=== PATIENT | male | born 1995 | race Caucasian/White ===

== ENCOUNTER 2023-10-20 23:27 | Observation (INO) | payer OTHER ==
[2023-10-21] MEDS ORDERED: LORazepam 0.5 MG TAB PO PRN ×2 (00:24→08:07)
[2023-10-21] MEDS ORDERED: LORazepam 1 MG TAB PO PRN ×3 (00:24)
--- NOTE | 2023-10-21 00:29 | ED ---
Chest Pain HPI - General Chief Complaint: Chest Pain Stated Complaint: seizure left ankle pain Time Seen by Provider: 10/21/23 00:27 Source: patient, RN notes reviewed Mode of arrival: wheelchair Limitations: no limitations - History of Present Illness Initial Comments: 28-year-old male presenting to the ER with a chief complaint of alcohol withdrawal. Patient states he is currently residing at [facility] for alcohol rehab. His last drink was last Saturday10/15/23. States he would normally drink 4 bottles of wine per night. He does report a history of seizures with alcohol withdrawal. He states at [facility] he has not been properly prescribed medications and feels like he is about to have a seizure. He states he has been extremely shaky all day. He does report he was playing volleyball and accidentally rolled his left ankle. He did states he did feel a pop and is endorsing pain over the fifth metatarsal. Denies any paresthesias or other injuries. He is also reporting chest pain and shortness of breath. Endorses nausea, vomiting as well. Denies any fevers, cough, congestion or peripheral edema. - Related Data Allergies Allergy/AdvReac Type Severity Reaction Status Date / Time propofol AdvReac Unknown Verified 10/20/23 23:53 Review of Systems ROS Statement: Those systems with pertinent positive or pertinent negative responses have been documented in the HPI. ROS Other: All systems not noted in ROS Statement are negative. EKG Findings - EKG Comments: EKG Findings:: EKG taken at 23: 59 showing sinus tachycardia with no acute ST segment or T wave abnormalities. Ventricular rate 114, MS interval 131, QRS duration 89, QT/QTc 286/354. Past Medical History Additional Past Medical History / Comment(s): seizure History of Any Multi-Drug Resistant Organisms: None Reported Additional Past Surgical History / Comment(s): ankle surgery Smoking Status: Current every day smoker, Vaper Past Alcohol Use History: Heavy Past Drug Use History: Marijuana General Exam Limitations: no limitations General appearance: alert, in no apparent distress, anxious Head exam: Present: atraumatic, normocephalic, normal inspection Respiratory exam: Present: normal lung sounds bilaterally. Absent: respiratory distress, wheezes, rales, rhonchi, stridor Cardiovascular Exam: Present: normal rhythm, tachycardia, normal heart sounds GI/Abdominal exam: Present: soft, normal bowel sounds. Absent: distended, tenderness, guarding, rebound, rigid Extremities exam: Present: normal inspection, full ROM, tenderness (Fifth metatarsal 2+ left dorsalis pedis pulse. Sensation intact. Patient has full active range of motion.), normal capillary refill. Absent: pedal edema, joint swelling, calf tenderness Neurological exam: Present: alert, oriented X3, CN II-XII intact Skin exam: Present: warm, dry, intact, normal color. Absent: rash Course Vital Signs 10/20/23 10/21/23 23:49 02:44 Temperature 99.6 F Pulse Rate 125 H 103 H Respiratory 20 18 Rate Blood Pressure 139/67 118/74 O2 Sat by Pulse 99 96 Oximetry - Reevaluation(s) Reevaluation #1: 10/21/23 03:[address] Wan, who accepts medical admission. Procedures - Orthopedic Splinting/Casting Injury #1 Side: left Lower Extremity Injury Location: foot Lower Extremity Immobilizer: posterior splint Chest Pain MDM - MDM Was pt. sent in by a medical professional or institution (, PA, BEATER LEAD, urgent care, hospital, or usp...) When possible be specific @ -No Did you speak to anyone other than the patient for history (EMS, parent, family, police, friend...)? What history was obtained from this source @ -No Did you review nursing and triage notes (agree or disagree)? Why? @ -I reviewed and agree with nursing and triage notes Were old charts reviewed (outside hosp., previous admission, EMS record, old EKG, old radiological studies, urgent care reports/EKG's, usp records)? Report findings @ -No old charts were reviewed Differential Diagnosis (chest pain, altered mental status, abdominal pain women, abdominal pain men, vaginal bleeding, weakness, fever, dyspnea, syncope, headache, dizziness, GI bleed, back pain, seizure, CVA, palpatations, mental health, musculoskeletal)? @ -Alcohol intoxication, alcohol withdrawal, fracture, dislocation, contusion t his list is not meant to be all-inclusive EKG interpreted by me (3pts min.). @ -As above X-rays interpreted by me (1pt min.). @ -Left foot x-ray interpreted by me significant for 1/5 metatarsal fracture. Chest x-ray and left ankle as interpreted by me negative for acute process. CT interpreted by me (1pt min.). @ -None done U/S interpreted by me (1pt. min.). @ -None done What testing was considered but not performed or refused? (CT, X-rays, U/S, labs)? Why? @ -None What meds were considered but not given or refused? Why? @ -None Did you discuss the management of the patient with other professionals (professionals i.e. DrAlysia, PA, BEATER LEAD, lab, RT, psych nurse, delinquency prevention social worker, pot tender, teacher, psychological operations officer, case fitter)? Give summary @ -Yes, case discussed with Dr. Wan who accepts medical admission. Was smoking cessation discussed for >3mins.? @ -No Was critical care preformed (if so, how long)? @ -No Were there social determinants of health that impacted care today? How? (Homelessness, low income, unemployed, alcoholism, drug addiction, transportation, low edu. Level, literacy, decrease access to med. care, half-way, rehab)? @ -Beth is not currently in rehab at [facility] Was there de-escalation of care discussed even if they declined (Discuss DNR or withdrawal of care, Hospice)? DNR status @ -No What co-morbidities impacted this encounter? (DM, HTN, Smoking, COPD, CAD, Cancer, CVA, ARF, Chemo, Hep., AIDS, mental health diagnosis, sleep apnea, morbid obesity)? @ -Alcoholism Was patient admitted / discharged? Hospital course, mention meds given and route, prescriptions, significant lab abnormalities, going to OR and other pertinent info. @ -Admitted. 28-year-old male presented to the ER with a chief complaint of alcohol withdrawal and left foot injury. History and physical exam completed. Vitals significant for tachycardia at 125 upon arrival. Vitals otherwise stable. Patient no signs of acute distress and nontoxic-appearing. Patient with tremor and restless on exam. Left lower extremity neurovascularly intact with tenderness over fifth metatarsal base. Labs obtained unimpressive. X-rays of the left foot significant for 5th metatarsal fracture. Splint placed. Admission considered due to CIWA at 21. Ativan given. Case discussed with Dr. Wan who accepts medical admission. Patient agreeable for admission. Case discussed with ED attending, Dr. Serrano. Undiagnosed new problem with uncertain prognosis? @ -No Drug Therapy requiring intensive monitoring for toxicity (Heparin, Nitro, Insulin, Cardizem)? @ -No Were any procedures done? @ -Yes Diagnosis/symptom? @ -Alcohol withdrawal/fifth metatarsal fracture Acute, or Chronic, or Acute on Chronic? @ -Acute Uncomplicated (without systemic symptoms) or Complicated (systemic symptoms)? @ -Complicated Side effects of treatment? @ -No Exacerbation, Progression, or Severe Exacerbation? @ -No Poses a threat to life or bodily function? How? (Chest pain, USA, MS, pneumonia, PE, COPD, DKA, ARF, appy, cholecystitis, CVA, Diverticulitis, Homicidal, Suicidal, threat to staff... and all critical care pts) @ -Possibly Disposition Clinical Impression: Alcohol withdrawal, Fracture of fifth metatarsal bone Disposition: ADMITTED IP TO THIS HOSP Condition: Good Time of Disposition: 02:27
[2023-10-21 00:38] LABS: Basophils # (A) 0.1 k/uL (0-0.2); Basophils % (A) 1 %; Eosinophils % (A) 0 %; HCT 45.6 % (39.0-53.0); HGB 14.3 gm/dL (13.0-17.5); Lymphocytes # (A) 0.9 k/uL (1.0-4.8); Lymphocytes % (A) 14 %; MCH 29.7 pg (25.0-35.0); MCHC 31.3 g/dL (31.0-37.0); MCV 94.9 fL (80.0-100.0); Mean Platelet Volume 7.1; Monocytes # (A) 0.5 k/uL (0-1.0); Monocytes % (A) 7 %; Neutrophils # (A) 5.1 k/uL (1.3-7.7); Neutrophils % (A) 77 %; Platelet Count 278 k/uL (150-450); RBC 4.81 m/uL (4.30-5.90); RDW 12.9 % (11.5-15.5); WBC 6.6 k/uL (3.8-10.6)
[2023-10-21 01:09] LABS: ALT 40 U/L (4-49); AST 46 U/L (17-59); African American GFR (CKD) 89 (>60 ml/min/1.73 sqM); Albumin 4.6 g/dL (3.5-5.0); Alcohol <10 mg/dL; Alkaline Phosphatase 78 U/L (38-126); Anion Gap 11 mmol/L; Blood Urea Nitrogen 12 mg/dL (9-20); Calcium 9.9 mg/dL (8.4-10.2); Carbon Dioxide 25 mmol/L (22-30); Chloride 105 mmol/L (98-107); Glucose 81 mg/dL (74-99); Magnesium 1.6 mg/dL (1.6-2.3); Non-African American GFR(CKD) 77 (>60 ml/min/1.73 sqM); Potassium 4.2 mmol/L (3.5-5.1); Sodium 141 mmol/L (137-145); Total Bilirubin 0.5 mg/dL (0.2-1.3); Total Protein 7.1 g/dL (6.3-8.2)
[2023-10-21] MEDS: THIAMINE 100 MG/ML 2 ML VIAL IM STA (01:16)
[2023-10-21] MEDS ORDERED: LORazepam 2 MG/ML INJ IV PRN ×3 (01:29→08:07)
[2023-10-21] MEDS: SODIUM CHLORIDE 0.9% 1,000 ML IV STA (01:41)
[2023-10-21] MEDS: LORazepam 2 MG/ML INJ IV PRN ×2 (01:41→06:20)
[2023-10-21 01:47] LABS: Partial Thromboplastin Time 25.3 sec (22.0-30.0); Prothrombin Time 10.9 sec (10.0-12.5)
[2023-10-21] MEDS: IBUPROFEN 600 MG TAB PO STA (02:29)
--- NOTE | 2023-10-21 02:30 | XR ---
EXAM: XR Left Ankle Complete, 3 or More Views CLINICAL HISTORY: Pain. TECHNIQUE: Frontal, lateral and oblique views of the left ankle. COMPARISON: No relevant prior studies available. FINDINGS: Bones/joints: Unremarkable. No acute fracture. No dislocation. Soft tissues: Unremarkable. IMPRESSION: Normal left ankle x-rays.
--- NOTE | 2023-10-21 02:33 | XR ---
EXAM: XR Left Foot Complete, 3 or More Views CLINICAL HISTORY: Pain. TECHNIQUE: Frontal, lateral and oblique views of the left foot. COMPARISON: No relevant prior studies available. FINDINGS: Bones/joints: Non-distracted acute transverse fracture through the base of the fifth metatarsal. No other fracture. No dislocation. Soft tissues: Unremarkable. No radiopaque foreign body. IMPRESSION: Non-distracted acute transverse fracture through the base of the fifth metatarsal.
--- NOTE | 2023-10-21 02:34 | XR ---
EXAM: XR Chest, 2 Views CLINICAL HISTORY: Chest Pain TECHNIQUE: Frontal and lateral views of the chest. COMPARISON: No relevant prior studies available. FINDINGS: Lungs: Unremarkable. No infiltration, atelectasis or mass density. Pleural space: Unremarkable. No pneumothorax. No pleural fluid. Heart: Unremarkable. No cardiomegaly. Mediastinum: Unremarkable. Normal mediastinal contour. Bones/joints: Unremarkable. No acute abnormalities. IMPRESSION: Negative chest x-rays.
[2023-10-21] MEDS: ACETAMINOPHEN TAB 325 MG TAB PO STA (02:41)
[2023-10-21] MEDS ORDERED: NALOXONE 0.4 MG/ML 1 ML VIAL IV PRN (02:48)
--- NOTE | 2023-10-21 04:04 | P.HPIM ---
History of Present Illness H&P Date: 10/21/23 Patient is a 28-year-old male with a PMH of alcohol abuse who presents to the emergency room from [facility] for alcohol drawl. Patient reports that he has been at [facility] for the past 5 days and that his last drink was this past Saturday. Reports drinking 3 bottles of wine daily for the past several months and does report a history of alcohol withdrawal. Denies history of alcohol withdrawal seizures. Reported feeling shaky and uneasy as well as diaphoretic. Also reports left-sided sharp chest discomfort, pleuritic component, without associated nausea, vomiting, or dizziness. Denies fever, chills, cough, abdominal pain, diarrhea. Patient did report twisting his left ankle while playing volleyball earlier in the day today. EKG in the emergency room revealed sinus tachycardia at [address]/T wave changes noted as reviewed by me. Chest x-ray revealed no acute abnormal ities. Left foot x-ray revealed an acute transverse fracture of the fifth metatarsal. Laboratory evaluation was remarkable for creatinine of 1.27 with troponin less than 0.012. ED documentation reviewed and case discussed with ED provider. Review of systems: Pertinent positives and negatives as discussed in HPI, a complete review of systems was performed and all other systems are negative. Physical examination: Vital signs reviewed General: non toxic, no distress, appears at stated age, normal weight Derm: no unusual rashes/lesions, warm Head: atraumatic, normocephalic, symmetric Eyes: EOMI, no lid lag, anicteric sclera, pupils equal round reactive to light ENT: Nose and ears atraumatic Neck: No cervical lymphadenopathy, trachea midline, supple Mouth: no lip lesion, mucus membranes moist, tongue fasciculations noted Cardiovascular: S1S2 reg, no murmur, positive dorsalis pedis pulse bilateral, no edema Lungs: CTA bilateral, no rhonchi, no rales, no accessory muscle use Abdominal: soft, nontender to palpation, no guarding Ext: muscle strength 5 out of 5 in all 4 extremities grossly, no gross muscle atrophy, no contractures, Neuro: CN II-XI grossly intact, no gross focal neuro deficits, outstretched hand tremor Psych: Alert, oriented, appropriate affect Assessment: Alcohol withdrawal Pleuritic chest pain, suspect musculoskeletal Kidney injury, acute versus chronic Left fifth metatarsal fracture Imaging: EKG in the emergency room revealed sinus tachycardia at [address]/T wave changes noted as reviewed by me. Chest x-ray revealed no acute abnormalities. Left foot x-ray revealed an acute transverse fracture of the fifth metatarsal. Data Review: Laboratory evaluation was remarkable for creatinine of 1.27 with troponin less than 0.012. Plan: Advised on the importance of cessation Continue with thiamine Continue IV fluid with normal saline 100 cc/h CIWA protocol with Ativan as needed Cardiac monitoring Monitor electrolytes daily Fall precautions Monitor BMP Check D-dimer Left foot splinted in the emergency room, patient will need outpatient orth opedics follow-up DVT prophylaxis: Lovenox subcu The patient is admitted with an anticipated less than 2 midnight stay for evaluation of alcohol withdrawal CODE STATUS: Full Code Discussed with: Patient Anticipated discharge place: [facility] Past Medical History Additional Past Medical History / Comment(s): seizure History of Any Multi-Drug Resistant Organisms: None Reported Additional Past Surgical History / Comment(s): ankle surgery Smoking Status: Current every day smoker, Vaper Past Alcohol Use History: Heavy Past Drug Use History: Marijuana Medications and Allergies Allergies Allergy/AdvReac Type Severity Reaction Status Date / Time propofol AdvReac Unknown Verified 10/20/23 23:53 Physical Exam Vitals: Vital Signs Temp Pulse Resp BP Pulse Ox 10/21/23 02:44 103 H 18 118/74 96 10/20/23 23:49 99.6 F 125 H 20 139/67 99 Intake and Output 10/20/23 10/20/23 10/21/23 14:59 22:59 06:59 Other: Weight 81.193 kg Results CBC & Chem 7: 10/21/23 00:11 10/21/23 00:11 Labs: Abnormal Lab Results - Last 24 Hours (Table) 10/21/23 10/21/23 Range/Units 00:11 00:11 Lymphocytes # 0.9 L (1.0-4.8) k/uL Creatinine 1.27 H (0.66-1.25) mg/dL
[2023-10-21 04:43] LABS: HCT 41.7 % (39.0-53.0); HGB 13.6 gm/dL (13.0-17.5); MCHC 32.6 g/dL (31.0-37.0); Mean Platelet Volume 8.1; Platelet Count 247 k/uL (150-450); RBC 4.39 m/uL (4.30-5.90)
[2023-10-21] MEDS: SODIUM CHLORIDE 0.9% 1,000 ML IV SCH (04:51)
[2023-10-21 04:57] LABS: African American GFR (CKD) >90 (>60 ml/min/1.73 sqM); Anion Gap 9 mmol/L; Blood Urea Nitrogen 12 mg/dL (9-20); Calcium 8.6 mg/dL (8.4-10.2); Carbon Dioxide 22 mmol/L (22-30); Chloride 107 mmol/L (98-107); Glucose 103 mg/dL (74-99); Non-African American GFR(CKD) 83 (>60 ml/min/1.73 sqM); Potassium 3.6 mmol/L (3.5-5.1); Sodium 138 mmol/L (137-145)
[2023-10-21] MEDS: chlordiazePOXIDE 25 MG CAP PO SCH (08:27)
[2023-10-21] MEDS: FOLIC ACID 1 MG TAB PO SCH (08:27)
[2023-10-21] MEDS: LORazepam 1 MG TAB PO PRN ×3 (08:27→20:38)
[2023-10-21] MEDS: ENOXAPARIN 40 MG/0.4 ML SYRINGE SQ SCH (08:29)
[2023-10-21 12:20] VITALS: TEMP 97.6
[2023-10-21] MEDS: cloNIDine HCL 0.1 MG TAB PO PRN (13:58)
[2023-10-21] MEDS ORDERED: ALBUTEROL NEBULIZED 2.5 MG/3 ML INHALATION PRN (15:45)
[2023-10-21] MEDS ORDERED: CALCIUM CARBONATE 500 MG CHEWABLE PO PRN (15:45)
[2023-10-21] MEDS ORDERED: MELATONIN 5 MG TABLET PO PRN (15:45)
[2023-10-21] MEDS ORDERED: ONDANSETRON 4 MG/2 ML VIAL IVP PRN (15:45)
[2023-10-21] MEDS ORDERED: bisacodyL 5 MG TABLET.DR PO PRN (15:45)
[2023-10-21] MEDS: ACETAMINOPHEN TAB 325 MG TAB PO PRN (16:44)
--- NOTE | 2023-10-21 17:43 | P.PN ---
Progress Note - Text Progress Note Date: 10/21/23 Update to H and P completed by Dr. Wan: Patient seen and examined at bedside in the emergency department at approximately 10:20 AM. Patient states he continues to have significant alcohol withdrawal and anxiety. He states the Ativan is not working. He then states that he had twisted his ankle and hurt it several days ago. He then states he was not getting proper care at [facility]. I added Atarax added and then clonidine to help with his anxiety. I am inagreement with the remained of his medications. I told him we would maintain him on Ativan and Librium and consult orthopedic surgery regarding his metatarsal fracture. Patient is very hostile and states it was too took too long to be seen. I explained to him that he saw the emergency department provider as well as my partner already and that it is 1020 in the morning and I have already seen him.
[2023-10-21] MEDS: hydrOXYzine HCL 25 MG TAB PO PRN (21:38)
[2023-10-21] MEDS: traZODone HCL 100 MG TAB PO STA (22:03)
[2023-10-22 03:03] VITALS: BP 128/87; PULSE 106; RESP 20
[2023-10-22] MEDS ORDERED: THIAMINE 100 MG TAB PO SCH (09:00)
--- NOTE | 2023-10-22 18:57 | P.DS ---
Providers Date of admission: 10/21/23 02:48 Expected date of discharge: 10/22/23 Attending physician: Courtney Wan MD Consults: 10/21/23 17:40 Consult Physician Routine Consulting Provider: Steven Barrientos Consult Reason/Comments: metatarsal fracture Do you want consulting provider notified?: Yes Primary care physician: Stated None Hospital Course: This is a summary of care as patient left Against Medical Advice. Discharge Diagnosis: Left Against Medical Advice Left fifth metatarsal transverse fracture Alcohol withdrawal Pleuritic chest pain Anxiety Nicotine dependency Acute kidney injury Hospital Course: Patient is a 28-year-old male with alcohol dependency, prior seizure disorder, and nicotine dependency who presented to the emergency department from [facility] due to foot pain, chest pain, and believing they were not appropriately retreating his alcohol withdrawal. On arrival to the ER he was tachycardic with a pulse of 114. Initial laboratory analysis demonstrated a creatinine of 1.27. Patient underwent extensive radiologic evaluation in the emergency department which showed a normal left ankle but a nondisplaced acute transverse fractures through the base of the fifth metatarsal. Patient was admitted for alcohol withdrawal and pleuritic chest pain as well as fifth metatarsal fracture. He was started on CIWA protocol as well as thiamine and folic acid. He was having significant anxiety and he was ordered both Atarax and trazodone. Orthopedic surgery was consulted. I logged into the computer on 10/22/23 and noted that his nurse let the patient leave AMA at 0518. I did not physically speak with or examine the patient on the day he left AMA. Patient was left against medical advice on 10/22/23. This dictation was prepared using [employer] voice recognition software. Though every attempt is made to correct errors during dictation some may still exist. Patient Condition at Discharge: Good Plan - Discharge Summary New Discharge Prescriptions: No Action RX: Thiamine [Vitamin B-1] 100 mg PO DAILY Mylanta 30 ml PO Q4H PRN PRN Reason: Gi Upset cloNIDine HCL [Catapres] 0.1 - 0.3 mg PO Q4H PRN PRN Reason: bp>160/100 Hyoscyamine Sulfate [Levsin] 0.125 mg PO QID PRN PRN Reason: Gi Upset LORazepam [Ativan] 1 - 2 mg PO Q4-6H traZODone HCL [Desyrel] 50 - 150 mg PO HS PRN PRN Reason: Insomnia ondansetron HCL [Zofran] 8 mg PO Q6H PRN PRN Reason: Nausea And Vomiting Acetaminophen Tab [Tylenol] 650 mg PO Q4H PRN PRN Reason: Pain Multivitamins, Thera [Multivitamin (formulary)] 1 tab PO DAILY RX: Melatonin 10 mg PO HS Ibuprofen [Motrin Ib] 600 mg PO Q6H PRN PRN Reason: Pain Loperamide [Imodium] 4 mg PO QID PRN PRN Reason: Diarrhea Calcium/Magnesium/Zinc/Vitamin D 334/134/5mg 1 tab PO TID PRN PRN Reason: muscle cramps Discharge Medication List Acetaminophen Tab [Tylenol] 650 mg PO Q4H PRN 10/21/23 [History] Calcium/Magnesium/Zinc/Vitamin D 334/134/5mg 1 tab PO TID PRN 10/21/23 [History] Hyoscyamine Sulfate [Levsin] 0.125 mg PO QID PRN 10/21/23 [History] Ibuprofen [Motrin Ib] 600 mg PO Q6H PRN 10/21/23 [History] LORazepam [Ativan] 1 - 2 mg PO Q4-6H 10/21/23 [History] Loperamide [Imodium] 4 mg PO QID PRN 10/21/23 [History] Multivitamins, Thera [Multivitamin (formulary)] 1 tab PO DAILY 10/21/23 [History] Mylanta 30 ml PO Q4H PRN 10/21/23 [History] RX: Melatonin 10 mg PO HS 10/21/23 [History] RX: Thiamine [Vitamin B-1] 100 mg PO DAILY 10/21/23 [History] cloNIDine HCL [Catapres] 0.1 - 0.3 mg PO Q4H PRN 10/21/23 [History] ondansetron HCL [Zofran] 8 mg PO Q6H PRN 10/21/23 [History] traZODone HCL [Desyrel] 50 - 150 mg PO HS PRN 10/21/23 [History] Follow up Appointment(s)/Referral(s): None,Stated [Primary Care Provider] - 1-2 days Discharge Disposition: LEFT AGAINST MEDICAL ADVICE
== END 2023-10-22 05:18 | disposition left against medical advice (07) ==
LOC: EC 23:27 → 3SCARD 10-21 02:48
PROVIDERS: ADMIT Internal Medicine; ATTEND Internal Medicine
DX: F10.239 Alcohol dependence with withdrawal, unspecified (principal); S92.355A Nondisplaced fracture of fifth metatarsal bone, left foot, initial encounter for closed fracture; R07.81 Pleurodynia; N17.9 Acute kidney failure, unspecified; X50.1XXA Overexertion from prolonged static or awkward postures, initial encounter; Y93.68 Activity, volleyball (beach) (court); F41.9 Anxiety disorder, unspecified; F17.290 Nicotine dependence, other tobacco product, uncomplicated; Z88.4 Allergy status to anesthetic agent; Z86.69 Personal history of other diseases of the nervous system and sense organs; Z53.29 Procedure and treatment not carried out because of patient's decision for other reasons
CPT/HCPCS: 96376; 96361; 96372; 96374; 99285; 36415; 93005; 85379; 80053; 80048; 83735; 84484; 85025; 85027; 85610; 85730; 73610; 73630; 71046; G0378 ×2; G0480; J2060; J3411; 80320